=== PATIENT | female | born 1935 | race Asian ===

== ENCOUNTER 2017-01-02 11:12 | Outpatient (CLI) | payer MEDICARE, OTHER | END 2017-01-02 23:45 | DX: D63.1 Anemia in chronic kidney disease (principal); E11.9 Type 2 diabetes mellitus without complications; I10 Essential (primary) hypertension ==

== ENCOUNTER 2017-01-17 10:04 | Outpatient (CLI) | payer MEDICARE, OTHER | END 2017-01-17 10:05 | disposition home or self-care (01) | DX: D63.1 Anemia in chronic kidney disease (principal) ==

== ENCOUNTER 2017-02-18 10:50 | Outpatient (CLI) | payer MEDICARE, OTHER | END 2017-02-18 10:51 | disposition home or self-care (01) | DX: M10.9 Gout, unspecified (principal) ==

== ENCOUNTER 2017-11-18 08:00 | Outpatient (CLI) | payer MEDICARE, OTHER ==
[2017-11-18 13:26] LABS: % IRON SATURATION 25 % (20-50); ALBUMIN 4.2 g/dL (3.2-5.5); ALBUMIN/GLOBULIN RATIO 1.4 (1.0-2.2); ALKALINE PHOSPHATASE 34 IU/L (42-121); ALT ALANINE AMINOTRANSFERASE 19 IU/L (10-60); AST ASPARTATE AMINOTRANSFERASE 28 IU/L (10-42); BILIRUBIN,TOTAL 0.7 mg/dL (0.2-1.0); BUN - BLOOD UREA NITROGEN 26 mg/dL (6-20); CALCIUM 9.1 mg/dL (8.5-10.3); CARBON DIOXIDE - CO2 27 mmol/L (21-32); CHLORIDE 108 mmol/L (101-111); CHOL/HDL RATIO 2.6 (<4.4); CHOLESTEROL 113 mg/dL; CREATININE 1.6 mg/dL (0.4-1.0); GFR - MDRD 31 (>89); GLUCOSE 106 mg/dL (70-100); HDL CHOLESTEROL 43 mg/dL; IRON 80 ug/dL (28-170); LDL CHOLESTEROL,CALCULATED 45 mg/dL; SODIUM 140 mmol/L (135-145); TOTAL IRON BINDING CAPACITY 323 ug/dL (250-450); TOTAL PROTEIN 7.2 g/dL (6.7-8.2); TRANSFERRIN 231 mg/dL (192-382); URIC ACID 4.2 mg/dL (2.6-7.2); VLDL CHOLESTEROL 25 mg/dL
[2017-11-18 13:30] LABS: THYROID STIMULATING HORMONE 1.65 uIU/mL (0.34-5.60)
[2017-11-18 13:35] LABS: FERRITIN 276.8 ng/mL (11.0-306.8)
[2017-11-18 14:19] LABS: HB2 TOTAL 13.1 g/dL; HEMOGLOBIN A1C 0.56 g/dL; HEMOGLOBIN A1C % 6.1 % (4.6-6.2)
== END 2017-11-18 08:01 | disposition home or self-care (01) ==
LOC: LAB.WCP 08:00
PROVIDERS: ATTEND Family Medicine
DX: D63.1 Anemia in chronic kidney disease (principal); E11.22 Type 2 diabetes mellitus with diabetic chronic kidney disease; I12.9 Hypertensive chronic kidney disease with stage 1 through stage 4 chronic kidney disease, or unspecified chronic kidney disease; N18.9 Chronic kidney disease, unspecified
CPT/HCPCS: 36415; 80053; 80061; 82728; 83036; 83540; 83721; 84443; 84466; 84550

== ENCOUNTER 2018-06-05 11:35 | Outpatient (CLI) | payer MEDICARE, OTHER ==
[2018-06-05 19:18] LABS: ALBUMIN/GLOBULIN RATIO 1.4 (1.0-2.2); BILIRUBIN,TOTAL 0.6 mg/dL (0.2-1.0); CALCIUM 9.2 mg/dL (8.5-10.3); CREATININE 1.8 mg/dL (0.4-1.0); TOTAL PROTEIN 6.8 g/dL (6.7-8.2)
[2018-06-05 20:36] LABS: BASOPHILS # (AUTO) 0.1 10^3/uL (0.0-0.1); BASOPHILS % (AUTO) 2.3 %; EOSINOPHILS # (AUTO) 0.3 10^3/uL (0.0-0.7); EOSINOPHILS % (AUTO) 4.1 %; HGB - HEMOGLOBIN 11.1 g/dL (12.0-16.0); LYMPHOCYTES # (AUTO) 1.6 10^3/uL (1.5-3.5); LYMPHOCYTES % (AUTO) 26.9 %; MEAN CORPUSCULAR HEMOGLOBIN 21.5 pg (27.0-31.0); MEAN CORPUSCULAR VOLUME 70.4 fL (81.0-99.0); MEAN PLATELET VOLUME 7.5 fL (7.9-10.8); MONOCYTES # (AUTO) 0.7 10^3/uL (0.0-1.0); MONOCYTES % (AUTO) 11.6 %; NEUTROPHILS # (AUTO) 3.4 10^3/uL (1.5-6.6); NEUTROPHILS % (AUTO) 55.1 %; PLT - PLATELET COUNT 196 10^3/uL (130-450); RED BLOOD COUNT 5.19 10^6/uL (4.20-5.40); RED CELL DISTRIBUTION WIDTH 16.1 % (12.0-15.0); WHITE BLOOD COUNT 6.1 x10^3/uL (4.8-10.8)
[2018-06-05 20:39] LABS: MEAN CORPUSCULAR HGB CONC 30.5 g/dL (32.0-36.0)
[2018-06-05 20:40] LABS: HB2 TOTAL 12.5 g/dL; HEMOGLOBIN A1C 0.55 g/dL; HEMOGLOBIN A1C % 6.2 % (4.6-6.2)
== END 2018-06-05 11:36 ==
LOC: LAB.WCP 11:35
PROVIDERS: ATTEND Family Medicine
DX: I10 Essential (primary) hypertension (principal); E11.9 Type 2 diabetes mellitus without complications
CPT/HCPCS: 36415; 80053; 83036; 85025

== ENCOUNTER 2019-03-21 06:25 | Emergency (ER) | payer MEDICARE, OTHER ==
[2019-03-21 06:39] VITALS: BP 159/69
[2019-03-21 06:59] LABS: BASOPHILS # (AUTO) 0.1 10^3/uL (0.0-0.1); BASOPHILS % (AUTO) 1.2 %; EOSINOPHILS # (AUTO) 0.1 10^3/uL (0.0-0.7); EOSINOPHILS % (AUTO) 1.5 %; HGB - HEMOGLOBIN 12.3 g/dL (12.0-16.0); LYMPHOCYTES # (AUTO) 1.9 10^3/uL (1.5-3.5); LYMPHOCYTES % (AUTO) 28.7 %; MEAN CORPUSCULAR HEMOGLOBIN 21.9 pg (27.0-31.0); MEAN CORPUSCULAR VOLUME 70.5 fL (81.0-99.0); MEAN PLATELET VOLUME 7.5 fL (7.9-10.8); MONOCYTES # (AUTO) 0.5 10^3/uL (0.0-1.0); MONOCYTES % (AUTO) 8.2 %; NEUTROPHILS % (AUTO) 60.4 %; PLT - PLATELET COUNT 251 10^3/uL (130-450); RED BLOOD COUNT 5.63 10^6/uL (4.20-5.40); RED CELL DISTRIBUTION WIDTH 15.1 % (12.0-15.0); WHITE BLOOD COUNT 6.6 x10^3/uL (4.8-10.8)
[2019-03-21 07:11] LABS: ALBUMIN 4.1 g/dL (3.2-5.5); ALBUMIN/GLOBULIN RATIO 1.1 (1.0-2.2); BILIRUBIN,TOTAL 0.9 mg/dL (0.2-1.0); CALCIUM 9.6 mg/dL (8.5-10.3); CREATININE 1.6 mg/dL (0.4-1.0); TOTAL PROTEIN 7.8 g/dL (6.7-8.2)
--- NOTE | 2019-03-21 07:24 | ED Physician Documentation ---
PD HPI ABD PAIN - Stated complaint Stated Complaint: CONSTIPATION - Chief complaint Chief Complaint: Abd Pain - History obtained from History obtained from: Patient - History of Present Illness Timing - onset: How many days ago (5) Timing - duration: Days (5) Timing - details: Gradual onset, Still present Quality: Fullness/distended Location: All over / everywhere Worsened by: Eating Associated symptoms: Nausea, Constipation. No: Vomiting Similar symptoms before: Has not had sx before Recently seen: Clinic - Additional information Additional information: 83-year-old female has been in to see her doctor for some hip pain, was placed on some narcotic, and now has developed constipation with no bowel movement over the past 5 days. She is feeling some fullness overall in her abdomen and some mild nausea. She does not otherwise feel ill. Review of Systems Constitutional: denies: Fever Nose: denies: Rhinorrhea / runny nose, Congestion Throat: denies: Sore throat Cardiac: denies: Chest pain / pressure Respiratory: denies: Dyspnea, Cough GI: reports: Abdominal Pain, Nausea, Constipation. 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 : Renal insuffiency HEENT: None Psych: None Musculoskeletal: None Derm: None - Past Surgical History Past Surgical History: Yes General: Cholecystectomy, Appendectomy - Present Medications Home Medications: Ambulatory Orders Medication Instructions Recorded Confirmed Calcium Crb,Cit/D3/Min34/Susan 1 each PO BID 10/25/14 04/01/17 [Citracal + Bone Density Tablet] Clopidogrel Bisulfate [Plavix] 75 mg PO DAILY 10/25/14 04/01/17 Glipizide [Glipizide ER] 2.5 mg PO DAILY 10/25/14 04/01/17 Simvastatin [Zocor] 20 mg PO DAILY 10/25/14 04/01/17 Telmisartan [Micardis] 40 mg PO DAILY 10/25/14 04/01/17 raNITIdine [Zantac] 150 mg PO BID 10/25/14 04/01/17 Colchicine 0.6 mg PO DAILY 04/01/17 04/01/17 - Allergies Allergies/Adverse Reactions: Allergies Allergy/AdvReac Type Severity Reaction Status Date / Time allopurinol Allergy Itching Verified 06/29/16 09:35 lisinopril Allergy Respiratory Verified 06/29/16 09:35 losartan Allergy Itching Verified 06/29/16 09:35 rocuronium Allergy Respiratory Verified 06/29/16 09:35 - Social History Does the pt smoke?: No Smoking Status: Never smoker Does the pt drink ETOH?: No Does the pt have substance abuse?: No - Immunizations Immunizations are current?: Yes - POLST Patient has POLST: No PD ED PE NORMAL - Vitals Vital signs reviewed: Yes (mild hypertension) - General General: Alert and oriented X 3, No acute distress, Well developed/nourished - HEENT HEENT: Atraumatic, PERRL, EOMI - Cardiac Cardiac: RRR, Other (2/6 holosystolic murmer at LSB) - Respiratory Respiratory: No respiratory distress - Abdomen Abdomen: Soft, Non tender - Back Back: No CVA TTP, No spinal TTP - Derm Derm: Normal color, Warm and dry, No rash - Extremities Extremities: No deformity, No edema, No calf tenderness / cord - Neuro Neuro: Alert and oriented X 3, manager integration 2-12 intact, No motor deficit, No sensory deficit, Normal speech Eye Opening: Spontaneous Motor: Obeys Commands Verbal: Oriented GCS Score: 15 - Psych Psych: Normal mood, Normal affect Results - Vitals Vitals: Vital Signs - 24 hr 03/21/19 06:37 Temperature 36.8 C Heart Rate 97 Respiratory 17 Rate Blood Pressure 159/69 H O2 Saturation 100 Oxygen O2 Source Room air - Labs Labs: Laboratory Tests 03/21/19 03/21/19 06:50 06:50 WBC 6.6 RBC 5.63 H Hgb 12.3 Hct 39.7 MCV 70.5 L MCH 21.9 L MCHC 31.0 L RDW 15.1 H Plt Count 251 MPV 7.5 L Neut # (Auto) 4.0 Lymph # (Auto) 1.9 [place] # (Auto) 0.5 Eos # (Auto) 0.1 Baso # (Auto) 0.1 Absolute Nucleated RBC 0.00 Nucleated RBC % 0.0 Sodium 138 Potassium 3.8 Chloride 102 Carbon Dioxide 23 Anion Gap 13.0 BUN 23 H Creatinine 1.6 H Estimated GFR (MDRD) 31 L Glucose 135 H Calcium 9.6 Total Bilirubin 0.9 AST 28 ALT 16 Alkaline Phosphatase 56 Total Protein 7.8 Albumin 4.1 Globulin 3.7 Albumin/Globulin Ratio 1.1 Lipase 58 H PD MEDICAL DECISION MAKING - ED course Complexity details: reviewed results, re-evaluated patient, considered differential, d/w patient, d/w family ED course: 83-year-old female recently started on some narcotic pain reliever has developed some constipation and she is administered an enema here in the emergency dep artment with good result. Departure - Departure Disposition: 01 Home, Self Care Clinical Impression: Constipation Qualifiers: Constipation type: unspecified constipation type Qualified Code(s): K59.00 - Constipation, unspecified Condition: Stable Instructions: ED Constipation Follow-Up: Tank Velazquez MD [Primary Care Provider] -
== END 2019-03-21 08:30 | disposition home or self-care (01) ==
LOC: ED 06:25
DX: K59.00 Constipation, unspecified (principal); I10 Essential (primary) hypertension; E11.9 Type 2 diabetes mellitus without complications; Z79.84 Long term (current) use of oral hypoglycemic drugs
CPT/HCPCS: 36415; 80053; 83690; 85025; 99282; 99283

== ENCOUNTER 2019-09-24 07:08 | Outpatient (CLI) | payer MEDICARE, OTHER ==
[2019-09-24 13:22] LABS: ALBUMIN 4.4 g/dL (3.2-5.5); ALBUMIN/GLOBULIN RATIO 1.4 (1.0-2.2); ALKALINE PHOSPHATASE 45 IU/L (42-121); ALT ALANINE AMINOTRANSFERASE 16 IU/L (10-60); AST ASPARTATE AMINOTRANSFERASE 26 IU/L (10-42); BILIRUBIN,TOTAL 0.9 mg/dL (0.2-1.0); BUN - BLOOD UREA NITROGEN 27 mg/dL (6-20); CALCIUM 9.2 mg/dL (8.5-10.3); CARBON DIOXIDE - CO2 29 mmol/L (21-32); CHLORIDE 102 mmol/L (101-111); CHOL/HDL RATIO 2.4 (<4.4); CHOLESTEROL 113 mg/dL; CREATININE 1.8 mg/dL (0.4-1.0); GFR - MDRD 27 (>89); GLUCOSE 111 mg/dL (70-100); HDL CHOLESTEROL 48 mg/dL; LDL CHOLESTEROL,CALCULATED 35 mg/dL; LDL/HDL RATIO 0.7 (<4.4); SODIUM 141 mmol/L (135-145); TOTAL PROTEIN 7.5 g/dL (6.7-8.2); URIC ACID 4.6 mg/dL (2.6-7.2); VLDL CHOLESTEROL 30 mg/dL
[2019-09-24 13:36] LABS: BASOPHILS # (AUTO) 0.1 10^3/uL (0.0-0.1); EOSINOPHILS # (AUTO) 0.2 10^3/uL (0.0-0.7); EOSINOPHILS % (AUTO) 3.5 %; HGB - HEMOGLOBIN 11.8 g/dL (12.0-16.0); LYMPHOCYTES # (AUTO) 1.9 10^3/uL (1.5-3.5); LYMPHOCYTES % (AUTO) 30.4 %; MEAN CORPUSCULAR HEMOGLOBIN 21.3 pg (27.0-31.0); MEAN CORPUSCULAR HGB CONC 29.4 g/dL (32.0-36.0); MEAN CORPUSCULAR VOLUME 72.4 fL (81.0-99.0); MEAN PLATELET VOLUME 10.4 fL (7.9-10.8); MONOCYTES # (AUTO) 0.5 10^3/uL (0.0-1.0); MONOCYTES % (AUTO) 8.6 %; NEUTROPHILS # (AUTO) 3.5 10^3/uL (1.5-6.6); NEUTROPHILS % (AUTO) 56.2 %; PLT - PLATELET COUNT 231 10^3/uL (130-450); RED BLOOD COUNT 5.54 10^6/uL (4.20-5.40); WHITE BLOOD COUNT 6.3 x10^3/uL (4.8-10.8)
== END 2019-09-24 23:59 | disposition home or self-care (01) ==
LOC: LAB.WCP 07:08
PROVIDERS: ATTEND Family Medicine
DX: I10 Essential (primary) hypertension (principal); E11.9 Type 2 diabetes mellitus without complications; E79.0 Hyperuricemia without signs of inflammatory arthritis and tophaceous disease
CPT/HCPCS: 36415; 80053; 80061; 83721; 84443; 84550; 85025

== ENCOUNTER 2020-07-24 12:58 | Emergency (ER) | payer MEDICARE, OTHER ==
--- NOTE | 2020-07-24 13:16 | ED Physician Documentation ---
History of Present Illness - Stated complaint Stated Complaint: FISH BONE IN THROAT - Chief complaint Chief Complaint: Heent - History obtained from History obtained from: Patient - History of Present Illness Timing: Today Pain level max: 0 Pain level now: 0 Improved by: nothing Worsened by: nothing - Additonal information Additional information: feels like there is a fish bone in her throat after eating fish and chips today. No vomiting. Able to eat and drink. 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 : Renal insuffiency HEENT: None Psych: None Musculoskeletal: None Derm: None - Past Surgical History Past Surgical History: Yes General: Cholecystectomy, Appendectomy - Present Medications Home Medications: Ambulatory Orders Medication Instructions Recorded Confirmed Calcium Crb,Cit/D3/Min34/Susan 1 each PO BID 10/25/14 04/01/17 [Citracal + Bone Density Tablet] Clopidogrel Bisulfate [Plavix] 75 mg PO DAILY 10/25/14 04/01/17 Glipizide [Glipizide ER] 2.5 mg PO DAILY 10/25/14 04/01/17 Simvastatin [Zocor] 20 mg PO DAILY 10/25/14 04/01/17 Telmisartan [Micardis] 40 mg PO DAILY 10/25/14 04/01/17 raNITIdine [Zantac] 150 mg PO BID 10/25/14 04/01/17 Colchicine 0.6 mg PO DAILY 04/01/17 04/01/17 - Allergies Allergies/Adverse Reactions: Allergies Allergy/AdvReac Type Severity Reaction Status Date / Time allopurinol Allergy Itching Verified 07/24/20 13:01 lisinopril Allergy Respiratory Verified 07/24/20 13:01 losartan Allergy Itching Verified 07/24/20 13:01 rocuronium Allergy Respiratory Verified 07/24/20 13:01 - Social History Does the pt smoke?: No Smoking Status: Never smoker Does the pt drink ETOH?: No Does the pt have substance abuse?: No - Immunizations Immunizations are current?: Yes - POLST Patient has POLST: No PD ED PE NORMAL - Vitals Vital signs reviewed: Yes - General General: Alert and oriented X 3, No acute distress - HEENT HEENT: Moist mucous membranes, Pharynx benign, Other (no visible FB in the oropharynx) - Neck Neck: Supple, no meningeal sign - Cardiac Cardiac: RRR - Respiratory Respiratory: No respiratory distress, Clear bilaterally - Derm Derm: Warm and dry - Neuro Neuro: Alert and oriented X 3 Results - Vitals Vitals: Vital Signs - 24 hr 07/24/20 07/24/20 07/24/20 13:01 13:05 14:04 Temperature 36.5 C 36.5 C 36.5 C Heart Rate 101 H 100 85 Respiratory 16 16 16 Rate Blood Pressure 210/73 H 210/73 H 149/87 H O2 Saturation 99 99 99 Oxygen O2 Source Room air - Rads (name of study) CT soft tissue neck Radiology: Prelim report reviewed, EMP read contemporaneously, See rad report PD MEDICAL DECISION MAKING - ED course Complexity details: reviewed results, re-evaluated patient, considered differential, d/w patient, d/w family ED course: 84-year-old female presents to the emergency department after feeling like there is a fishbone stuck in her throat. Tolerating p.o. without difficulty. No radiopaque foreign body on CT scan. She was informed of the irregular spiculated nodule in the right lung apex. She will follow-up with her doctor for a chest CT. Patient and family counseled regarding signs and symptoms for which I believe and urgent re-evaluation would be necessary. Patient with good understanding of and agreement to plan and is comfortable going home at this time This document was made in part using voice recognition software. While efforts are made to proofread this document, sound alike and grammatical errors may occur. 1. No radiopaque foreign body identified. 2. Irregular spiculated nodule within the right lung apex is new from the prior CT. The findings are suspicious for a neoplasm and further evaluation is recommended with dedicated chest CT. Departure - Departure Disposition: 01 Home, Self Care Clinical Impression: Lung mass Esophageal foreign body Qualifiers: Encounter type: initial encounter Qualified Code(s): T18.108A - Unspecified foreign body in esophagus causing other injury, initial encounter Condition: Good Instructions: ED Foreign Body Esophageal Rslv Follow-Up: Tank Velazquez MD [Primary Care Provider] - Within 3 Days Comments: We do not see any evidence of a fishbone in your neck on CT scan today. It is likely that there is a small abrasion in your throat, causing your symptoms. You do however have a mass in the right upper lung. You need a chest CT performed to further evaluate this. This should be done this week with your doctor. Return if you worsen. Discharge Date/Time: 07/24/20 14:04
--- NOTE | 2020-07-24 13:52 | CT Report ---
PROCEDURE: SOFT TISSUE NECK WO INDICATIONS: fish bone in throat TECHNIQUE: Non-contrast 3.0 mm axial sections acquired from the sella to the aortic arch. Additiona l oblique axial 3.0 mm sections acquired through the pharynx. 3 mm thick coronal reformats were gene rated. For radiation dose reduction, the following was used: automated exposure control, adjustment of mA and/or kV according to patient size. COMPARISON: None. FINDINGS: Image quality: Excellent. Lymph nodes: No enlarged lymph nodes seen throughout the neck. Vessels: Non-opacified vessels appear normal in caliber. Neck spaces: The oropharynx, nasopharynx, and pharynx demonstrate no mucosal lesions. No radiopaque foreign body identified. The vocal cords, false vocal cords, pyriform sinuses, epiglottis, vallecula , and tongue base all appear normal. Extramucosal spaces appear unremarkable. Glands: The parotid and submandibular glands appear normal, without stones. The thyroid demonstrate s no discrete nodules. Miscellaneous: Visualized brain demonstrates left frontal lobe encephalomalacia. There is generalize d cerebral volume loss with prominence of the ventricles and sulci. The orbits appear unremarkable. W ithin the visualized right lung apex, there is a spiculated nodule measuring up to 2.0 cm which appea rs new compared to the prior chest CT. Scarring is also demonstrated within the right apex. Superfici al soft tissues appear normal. IMPRESSION: 1. No radiopaque foreign body identified. 2. Irregular spiculated nodule within the right lung apex is new from the prior CT. The findings are suspicious for a neoplasm and further evaluation is recommended with dedicated chest CT. Reviewed by: Arnol Saenz MD on 07/24/2020 12:50 PM [facility] Approved by: Arnol Saenz MD on 07/24/2020 12:50 PM [facility] Station ID: [id number]
[2020-07-24 14:05] VITALS: BP 149/87
== END 2020-07-24 14:04 | disposition home or self-care (01) ==
LOC: ED 12:58
DX: T18.128A Food in esophagus causing other injury, initial encounter (principal); X58.XXXA Exposure to other specified factors, initial encounter; R91.1 Solitary pulmonary nodule; I10 Essential (primary) hypertension; E11.9 Type 2 diabetes mellitus without complications; Z79.84 Long term (current) use of oral hypoglycemic drugs; Z79.02 Long term (current) use of antithrombotics/antiplatelets
CPT/HCPCS: 70491; 99282; 99284

== ENCOUNTER 2020-09-22 10:02 | Emergency (ER) | payer MEDICARE, OTHER ==
--- NOTE | 2020-09-22 10:54 | XRAY Report ---
PROCEDURE: Chest 1 View X-Ray INDICATIONS: Chest pain TECHNIQUE: One view of the chest was acquired. COMPARISON: FINDINGS: Surgical changes and devices: None. Lungs and pleura: There is blunting of the costophrenic angle on the right consistent with a small pl eural effusion. No focal consolidation, mass, pneumothorax. Mediastinum: Mediastinal contours appear normal. The heart is at the upper limits of normal. The aor ta is tortuous. Bones and chest wall: No suspicious bony lesions. Overlying soft tissues appear unremarkable. IMPRESSION: 1. Blunting of the right costophrenic angle consistent with pleural effusion versus scarring. 2. Heart size is at the upper limits of normal. Reviewed by: Ady Hennessy on 09/22/2020 10:53 AM [facility] Approved by: Ady Hennessy on 09/22/2020 10:53 AM [facility] Station ID: [id number]
[2020-09-22 11:16] LABS: BASOPHILS # (AUTO) 0.1 10^3/uL (0.0-0.1); EOSINOPHILS % (AUTO) 0.5 %; HGB - HEMOGLOBIN 12.1 g/dL (12.0-16.0); LYMPHOCYTES # (AUTO) 1.1 10^3/uL (1.5-3.5); LYMPHOCYTES % (AUTO) 18.4 %; MEAN CORPUSCULAR HEMOGLOBIN 23.4 pg (27.0-31.0); MEAN CORPUSCULAR HGB CONC 31.9 g/dL (32.0-36.0); MEAN CORPUSCULAR VOLUME 73.3 fL (81.0-99.0); MEAN PLATELET VOLUME 9.5 fL (7.9-10.8); MONOCYTES # (AUTO) 0.4 10^3/uL (0.0-1.0); MONOCYTES % (AUTO) 6.5 %; NEUTROPHILS # (AUTO) 4.4 10^3/uL (1.5-6.6); NEUTROPHILS % (AUTO) 73.1 %; PLT - PLATELET COUNT 225 10^3/uL (130-450); RED BLOOD COUNT 5.17 10^6/uL (4.20-5.40); RED CELL DISTRIBUTION WIDTH 18.4 % (12.0-15.0)
[2020-09-22 11:23] LABS: ALBUMIN 4.3 g/dL (3.2-5.5); ALBUMIN/GLOBULIN RATIO 1.4 (1.0-2.2); BILIRUBIN,TOTAL 0.8 mg/dL (0.2-1.0); CALCIUM 9.4 mg/dL (8.5-10.3); CREATININE 1.8 mg/dL (0.4-1.0); TOTAL PROTEIN 7.3 g/dL (6.7-8.2)
[2020-09-22] MEDS ORDERED: SODIUM CHLORIDE 0.9% 1,000 ML IV STA (12:16)
--- NOTE | 2020-09-22 12:16 | ED Physician Documentation ---
History of Present Illness - Stated complaint Stated Complaint: LT SIDE BODY TINGLING - Chief complaint Chief Complaint: General - History obtained from History obtained from: Patient - Additonal information Additional information: 85-year-old female presents to the emergency department for evaluation of left sided body pain. History is somewhat difficult to elicit from her as there is a mild language barrier however she does report that for about 1 month that she has had pain that radiates from her left shoulder down to her hip. She denies that she has any shortness of air new cough weight loss night sweats vomiting urinary symptoms abdominal pain or diarrhea. She was seen in this emergency department in early July when she had concerns that there was a fishbone stuck in her throat. Subsequent CT of the neck did not reveal any foreign body in the throat however there was a spiculated mass in the apex of her right lung. A dedicated CT of the chest was recommended. Patient is scheduled to see Dr. Tripp in [place] on October 17. She is unsure why she is seeing him, but does believe it is related to the mass seen in her her chest a few months ago pt denies that she has her left sided body pain right now, but states that it is usually worse at night when laying flat pt has a hx of htn and dm and CVA. Denies any CAD hx Review of Systems Constitutional: denies: Fever, Chills, Fatigue, Weight Loss Eyes: reports: Reviewed and negative Ears: reports: Reviewed and negative Nose: reports: Reviewed and negative Throat: reports: Reviewed and negative Cardiac: denies: Chest pain / pressure, Palpitations Respiratory: denies: Dyspnea, Cough, Hemoptysis, Wheezing GI: denies: Abdominal Pain, Nausea, Vomiting, Diarrhea : denies: Dysuria, Frequency, Hesitancy Skin: denies: Rash, Lesions Musculoskeletal: reports: Other (left sided pain from left shoulder to hip) Neurologic: reports: Reviewed and negative Psychiatric: reports: Reviewed and negative PD PAST MEDICAL HISTORY - Past Medical History Past Medical History: Yes Cardiovascular: Hypertension, High cholesterol Respiratory: None Neuro: None Endocrine/Autoimmune: Type 2 diabetes GI: GERD 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 : Renal insuffiency HEENT: None Psych: None Musculoskeletal: None Derm: None - Past Surgical History Past Surgical History: Yes General: Cholecystectomy, Appendectomy - Present Medications Home Medications: Ambulatory Orders Medication Instructions Recorded Confirmed Calcium Crb,Cit/D3/Min34/Susan 1 each PO BID 10/25/14 09/22/20 [Citracal + Bone Density Tablet] Clopidogrel Bisulfate [Plavix] 75 mg PO DAILY 10/25/14 09/22/20 Glipizide [Glipizide ER] 2.5 mg PO DAILY 10/25/14 09/22/20 Simvastatin [Zocor] 20 mg PO DAILY 10/25/14 09/22/20 amLODIPine [Norvasc] 5 mg DAILY 09/22/20 09/22/20 - Allergies Allergies/Adverse Reactions: Allergies Allergy/AdvReac Type Severity Reaction Status Date / Time allopurinol Allergy Itching Verified 09/22/20 10:33 lisinopril Allergy Respiratory Verified 09/22/20 10:33 losartan Allergy Itching Verified 09/22/20 10:33 rocuronium Allergy Respiratory Verified 09/22/20 10:33 - Social History Does the pt smoke?: No Smoking Status: Never smoker Does the pt drink ETOH?: No Does the pt have substance abuse?: No - Immunizations Immunizations are current?: Yes - POLST Patient has POLST: No PD ED PE EXPANDED - General General: Alert, No acute distress, Well developed/nourished - HEENT HEENT: Atraumatic, PERRL, EOMI, Moist mucous membranes, Pharynx normal - Neck Neck: Supple w/out meningeal sx, No tenderness. No: Thyroid enlarged / mass, Limited ROM - Cardiac Cardiac: Regular Rate, Regular Rhythm, Murmur Present, Radial strong equal, Pedal strong equal, Cap refill < 2 sec - Respiratory Respiratory: Clear to ausultation louie. No: Distress, Labored, Wheezing - Abdomen Abdomen: Normal Bowel sounds. No: Tender to palpation, Rebound, Guarding - Derm Derm: Normal color, Warm and dry. No: Rash - Extremities Extremities: Normal. No: Deformity, Tenderness, Pedal edema bilateral, Right calf TTP/cord, Left calf TTP/cord - Neuro Neuro: Alert and Oriented X 3, CNII-XII intact, Normal gait, Normal speech - GCS Eye Opening: Spontaneous Motor: Obeys Commands Verbal: Oriented Total: 15 Results - Vitals Vitals: Vital Signs - 24 hr 09/22/20 09/22/20 09/22/20 10:29 11:00 12:01 Temperature 36.1 C L Heart Rate 100 89 89 Respiratory 16 16 16 Rate Blood Pressure 178/71 H 196/92 H 170/85 H O2 Saturation 100 100 100 Oxygen O2 Source Room air - EKG (time done) 1043 Rate: Rate (enter#) (93) Rhythm: NSR Intervals: Normal [place] QRS: Normal Ischemia: ST depression (minimal lateral leads) - Labs Labs: Laboratory Tests 09/22/20 09/22/20 09/22/20 10:52 10:52 10:52 WBC 6.0 RBC 5.17 Hgb 12.1 Hct 37.9 MCV 73.3 L MCH 23.4 L MCHC 31.9 L RDW 18.4 H Plt Count 225 MPV 9.5 Neut # (Auto) 4.4 Lymph # (Auto) 1.1 L [place] # (Auto) 0.4 Eos # (Auto) 0.0 Baso # (Auto) 0.1 Absolute Nucleated RBC 0.00 Nucleated RBC % 0.0 Sodium 139 Potassium 3.7 Chloride 103 Carbon Dioxide 23 Anion Gap 13.0 BUN 28 H Creatinine 1.8 H Estimated GFR (MDRD) 27 L Glucose 169 H Calcium 9.4 Total Bilirubin 0.8 AST 29 ALT 21 Alkaline Phosphatase 51 Troponin I High Sens 17.5 H* Total Protein 7.3 Albumin 4.3 Globulin 3.0 Albumin/Globulin Ratio 1.4 Lipase 75 H 09/22/20 12:59 WBC RBC Hgb Hct MCV MCH MCHC RDW Plt Count MPV Neut # (Auto) Lymph # (Auto) [place] # (Auto) Eos # (Auto) Baso # (Auto) Absolute Nucleated RBC Nucleated RBC % Sodium Potassium Chloride Carbon Dioxide Anion Gap BUN Creatinine Estimated GFR (MDRD) Glucose Calcium Total Bilirubin AST ALT Alkaline Phosphatase Troponin I High Sens 19.3 H* Total Protein Albumin Globulin Albumin/Globulin Ratio Lipase - Rads (name of study) cxr Radiology: Final report received (Blunting of the right costophrenic angle consistent with pleural effusion versus scarring. Heart size is at the upper limits of normal.) CT chest Radiology: Final report received (There are 2 separate lesions in the right lung which both may represent separate primary foci of bronchogenic carcinoma both measuring approximately 1.3 x 1.6 cm. Coronary artery disease. Mild emphysema.) PD MEDICAL DECISION MAKING - ED course Complexity details: reviewed results, re-evaluated patient, considered differential, d/w patient, d/w family ED course: 85-year-old female presents to the emergency department for evaluation of left- sided body pain. She reports that the pain is worse at night and that it comes and goes without any exacerbating known factors. History is somewhat difficult to obtain as she is has a history of dementia and there is a mild language barrier. I did call her to discuss some of the history however ED he was unclear what was causing her left-sided belly pain. She was seen in this emergency department about 2 months ago with concerns of a fishbone stuck in her throat. A CT of the neck did show a likely pulmonary mass in her chest. I did do a CT of the chest today and it does indicate that she has 2 separate areas of foci that likely represent a bronchogenic carcinoma. Here in the emergency department she is noted to have some baseline renal insufficiency which is unchanged from baseline. Her initial high-sensitivity troponin is 17.5 just above our cutoff threshold. A delta was also mildly elevated at 19. However patient denies that she has chest pain at this time. Her EKG is nonischemic. She does have a heart score of 5 but in the absence of active chest pain we will defer her for inpatient echo and stress testing. (this case was discussed with Dr. Wilver Gardner) I did discuss this ED visit with her primary care provider Dr. Tripp. He reports that his office will call to arrange follow-up for her next week. I advised that she should likely have an echo and stress test completed as an outpatient. He is in agreement with this. I also discussed the case with her and he understands the plan of care as well. While here in the emergency department patient has been alert well-appearing and hemodynamically stable Departure - Departure Disposition: 01 Home, Self Care Clinical Impression: Pulmonary mass, Elevated troponin Condition: Stable Record reviewed to determine appropriate education?: Yes Follow-Up: Damien Tripp MD [Physician No Access] - Comments: The CT of her Chest unfortunately shows that she does have 2 areas of concern in her lung that likely are cancer. This was discussed with Dr. Tripp. His office should be calling to arrange for follow-up within the next week. In addition to evaluation of the suspected pulmonary cancer she should be referred for outpatient stress test and echocardiogram. If at any point she has fainting episodes cannot breathe well, develops chest pain please return immediately to the ER
[2020-09-22 14:05] VITALS: BP 139/57
--- NOTE | 2020-09-22 14:10 | CT Report ---
PROCEDURE: CHEST WO INDICATIONS: recently diagnosed mass on soft tissue neck TECHNIQUE: Noncontrast 5 mm thick sections acquired from the pulmonary apices to the posterior costophrenic angl es. 7 mm thick coronal and sagittal MIP reformats were then acquired. For radiation dose reduction, the following was used: automated exposure control, adjustment of mA and/or kV according to patient size. COMPARISON: CT soft tissue neck without contrast dated 07/24/2020 FINDINGS: Image quality: Excellent. Lungs and pleura: There is a right apical spiculated density which on image #59/4 measures 1.3 x 1.6 cm, and may potent ially represent a bronchogenic carcinoma. There is a ill-defined masslike density with associated atelectasis in the right lower lobe which may also potentially represent bronchogenic carcinoma with associated atelectasis. This is not definite. The masslike area measures approximately 1.3 x 1.6 cm on image 128/4. Reference also, image 52/11 (s agittal reformats). Mild emphysematous change. No acute air space opacities. No pleural effusions or pneumothorax. Central and peripheral airways are patent and normal in caliber. Mediastinum: Heart size is normal. Minimal pericardial effusion. Coronary artery calcifications. No mediastinal adenopathy by size criteria. Thoracic aorta and central pulmonary arteries are normal i n size. Esophagus is normal in caliber. No hiatal hernia. Bones and chest wall: No suspicious bony lesions. No acute vertebral body compression fractures. M ultiple old mild thoracic compressions result in increased thoracic kyphosis. No axillary or supracla vicular adenopathy by size criteria. The thyroid is normal in size. Abdomen: Remote cholecystectomy. IMPRESSION: 1. There are 2 separate lesions in the right lung which both may represent separate primary foci of b ronchogenic carcinoma, both measuring approximately 1.3 x 1.6 cm. 2. Coronary artery disease. 3. Mild emphysema. Comment: Recommend PET/CT for further evaluation. Reviewed by: Ghassan Duarte MD on 09/22/2020 2:08 PM PST Approved by: Ghassan Duarte MD on 09/22/2020 2:08 PM PST Station ID: [id number]
== END 2020-09-22 14:46 | disposition home or self-care (01) ==
LOC: ED 10:02
DX: R91.8 Other nonspecific abnormal finding of lung field (principal); R77.8 Other specified abnormalities of plasma proteins; I10 Essential (primary) hypertension; E11.29 Type 2 diabetes mellitus with other diabetic kidney complication; F03.90 Unspecified dementia, unspecified severity, without behavioral disturbance, psychotic disturbance, mood disturbance, and anxiety; Z79.84 Long term (current) use of oral hypoglycemic drugs
CPT/HCPCS: 36415; 71250; 80053; 83690; 84484; 85025; 93005; 99284; 99285

== ENCOUNTER 2020-09-26 07:00 | Outpatient (CLI) | payer MEDICARE, OTHER ==
[2020-09-26 19:28] LABS: CALCIUM 9.3 mg/dL (8.5-10.3); CREATININE 1.8 mg/dL (0.4-1.0)
[2020-09-26 19:38] LABS: HEMOGLOBIN A1c% 6.4 % (4.27-6.07)
[2020-09-26 20:06] LABS: MICROALBUM/CREATININE RATIO,UR 2933.3 ug/mg (<30.0); MICROALBUMIN,URINE 184.8 mg/dL (0-300.0)
== END 2020-09-26 23:59 | disposition home or self-care (01) ==
LOC: LAB.WCP 07:00
PROVIDERS: ATTEND Internal Medicine
DX: E11.9 Type 2 diabetes mellitus without complications (principal)
CPT/HCPCS: 36415; 80048; 82043; 82570; 83036

== ENCOUNTER 2020-12-27 08:17 | Outpatient (CLI) | payer MEDICARE, OTHER ==
--- NOTE | 2020-12-27 17:58 | CT Report ---
PROCEDURE: CHEST WO INDICATIONS: PULMONARY MASS TECHNIQUE: Noncontrast 5 mm thick sections acquired from the pulmonary apices to the posterior costophrenic angl es. 8 mm thick coronal and sagittal MIP reformats were then acquired. For radiation dose reduction, the following was used: automated exposure control, adjustment of mA and/or kV according to patient size. COMPARISON: 09/22/2020 FINDINGS: Image quality: Excellent. Lungs and pleura: Stable appearance of spiculated, irregular right apical nodule measuring approxima tely 1.3 x 1.6 cm (image 47, series 4). There is minimal adjacent groundglass opacities. Punctate glen tral calcification is again noted. Redemonstration of irregular, ill-defined consolidation with assoc iated atelectasis, bronchiectasis, and peripheral groundglass opacities in the right lower lobe, abut ting the peripheral margins of the right major fissure. This is stable in appearance. Measured at a s imilar level, this area measures approximately 1.4 cm x 1.5 cm versus 1.3 cm x 1.6 centimeters previo usly. This is measured on image 127, series 4 and today's study. A more dense, nodular focus inferior ly measures approximately 1.4 cm x 1.0 cm (image 140, series 4) versus approximately 1.4 cm x 0.9 cm previously (image 140, series 4). No new acute air space opacities. Minimal pulmonary emphysematous changes. Stable mild subpleural scarring versus early fibrosis of the bilateral lung bases. Calcified left basilar pulmonary nodule. No pleural effusions or pneumothorax. Central and peripheral airways are patent and normal in caliber. Mediastinum: Heart size is normal. Moderate scattered atherosclerotic calcifications of the coronary arteries. No pericardial effusion. No mediastinal adenopathy by size criteria. Thoracic aorta and central pulmonary arteries are normal in size. Esophagus is normal in caliber. No hiatal hernia. Bones and chest wall: No suspicious bony lesions. No vertebral body compression fractures. No axil sage or supraclavicular adenopathy by size criteria. The thyroid is normal in size. Abdomen: Status post cholecystectomy. Extensive atherosclerotic calcifications of the upper abdomina l aorta. No evidence for aneurysmal dilatation. Stable partially exophytic right renal hypodensity. V isualized upper abdominal solid organs and bowel loops appear normal in the absence of contrast. IMPRESSION: 1. Stable appearance of spiculated, irregular right apical nodule measuring 1.3 x 1.6 cm as well as s table irregular right lower lobe pulmonary nodule measuring 1.4 x 1.5 cm. These are again suspicious for possible primary neoplasms of the lung. Recommend short interval follow-up chest CT in 3-[address] 2. Stable appearance of mild pulmonary emphysematous change. 3. Atherosclerosis. 4. Status post cholecystectomy. Reviewed by: Jacky Aguilar MD on 12/27/2020 5:56 PM PDT Approved by: Jacky Aguilar MD on 12/27/2020 5:56 PM PDT Station ID: [id number]
== END 2020-12-27 08:18 | disposition home or self-care (01) ==
LOC: DI 08:17
PROVIDERS: ATTEND Family Medicine
DX: J98.4 Other disorders of lung (principal); R91.8 Other nonspecific abnormal finding of lung field

== ENCOUNTER 2021-01-12 08:37 | Outpatient (CLI) | payer MEDICARE, OTHER ==
--- NOTE | 2021-01-12 10:35 | CARDIAC PROCEDURE NOTE ---
DATE OF SERVICE: 01/12/2021 Physician: Jazmin Bhardwaj MD, [facility] INDICATION: Chest pain, preop evaluation for possible lung cancer. CARDIAC RISK FACTORS: Advanced age, Hypertension, Diabetes. DESCRIPTION OF PROCEDURE: After signing informed consent, the patient underwent a Sunil-protocol treadmill stress test. Echo imaging was done pre-exercise and post-exercise. RESTING HEART RATE: 77. PEAK HEART RATE: 114 (85% predicted maximum heart rate for age). RESTING BLOOD PRESSURE: 181/61 (the patient did not take her morning Amlodipine dose). PEAK BLOOD PRESSURE: 148/68 (drop in blood pressure may be due to arm position on the treadmill or from "underfilled ventricle" which was seen on Echo). The patient exercised for 2 minutes and 25 seconds in stage I of a Sunil- protocol treadmill stress test. She had no chest pain or shortness of breath, but developed "fatigue" and wanted to stop exercise. The patient could not hear or understand directions to rate her exertion on a Adolfo scale. Oxygen saturation was 99% at rest and dropped to 82% at peak exercise on room air. RESTING EKG: Normal sinus rhythm, left atrial enlargement, LVH with strain pattern, early repolarization. EKG AT PEAK: No new ST segment or T-wave changes develop, rare PVCs are seen. SUMMARY: 1. Abnormal resting EKG. 2. No ischemic changes developed by EKG criteria, but may be inaccurate due to abnormal resting EKG. 3. Oxygen desaturation develops at peak exercise along with complaint of fatigue. 4. Echo images reported separately and showed: LVH present at rest, underfilled hyperdynamic ventricle at rest (suggests volume depletion). There is normal augmentation of all LV segments with exercise and even "kissing fontenot" develop with exercise, LVEF of almost 100%. This would produce a drop in blood pressure. IMPRESSION: 1. Oxygen desaturation developed with exercise. This may be pulmonary or cardiac in etiology. 2. Left ventricular hypertrophy, underfilled ventricle seen, hypotension develops with exercise. 3. Normal stress test regarding evaluation for coronary artery disease. 4. This patient's overall cardiac risk is Moderate. RECOMMENDATIONS: 1. Adjust medications for better blood pressure control and address volume depletion. 2. Evaluation for home oxygen is advised. cc: Damien Tripp MD TD: 01/12/2021 10:33 MILES
== END 2021-01-12 08:38 | disposition home or self-care (01) ==
LOC: DI 08:37
PROVIDERS: ATTEND Internal Medicine
DX: R07.89 Other chest pain (principal); R94.31 Abnormal electrocardiogram [ECG] [EKG]
CPT/HCPCS: 93350

== ENCOUNTER 2021-03-01 | Outpatient (CLI) | payer MEDICARE, OTHER | END 2021-03-01 18:05 | disposition EMS.NT ==

== ENCOUNTER 2021-03-28 08:00 | Outpatient (CLI) | payer MEDICARE, OTHER ==
[2021-03-28 12:28] LABS: ABSOLUTE RETICS # AUTO 0.067 10^6/uL (0.020-0.110); BASOPHILS # (AUTO) 0.1 10^3/uL (0.0-0.1); BASOPHILS % (AUTO) 0.8 %; EOSINOPHILS # (AUTO) 0.2 10^3/uL (0.0-0.7); EOSINOPHILS % (AUTO) 3.4 %; HCT - HEMATOCRIT 35.9 % (37.0-47.0); HGB - HEMOGLOBIN 10.9 g/dL (12.0-16.0); LYMPHOCYTES # (AUTO) 1.7 10^3/uL (1.5-3.5); LYMPHOCYTES % (AUTO) 24.5 %; MEAN CORPUSCULAR HEMOGLOBIN 22.1 pg (27.0-31.0); MEAN CORPUSCULAR HGB CONC 30.4 g/dL (32.0-36.0); MEAN CORPUSCULAR VOLUME 72.8 fL (81.0-99.0); MONOCYTES # (AUTO) 0.5 10^3/uL (0.0-1.0); MONOCYTES % (AUTO) 6.8 %; NEUTROPHILS # (AUTO) 4.5 10^3/uL (1.5-6.6); NEUTROPHILS % (AUTO) 64.2 %; PLT - PLATELET COUNT 246 10^3/uL (130-450); RED BLOOD COUNT 4.93 10^6/uL (4.20-5.40); RETICULOCYTE COUNT % (AUTO) 1.35 % (0.5-2.3); WHITE BLOOD COUNT 7.1 x10^3/uL (4.8-10.8)
[2021-03-28 12:52] LABS: ALBUMIN 4.4 g/dL (3.2-5.5); ALBUMIN/GLOBULIN RATIO 1.5 (1.0-2.2); BILIRUBIN,TOTAL 0.8 mg/dL (0.2-1.0); CALCIUM 9.6 mg/dL (8.5-10.3); CREATININE 2.5 mg/dL (0.4-1.0); ESTIMATED AVERAGE GLUCOSE 140 mg/dL (70-100); HEMOGLOBIN A1c% 6.5 % (4.27-6.07); POTASSIUM 4.3 mmol/L (3.5-5.0); TOTAL PROTEIN 7.3 g/dL (6.7-8.2)
== END 2021-03-28 23:59 | disposition home or self-care (01) ==
LOC: LAB.WCP 08:00
PROVIDERS: ATTEND Internal Medicine
DX: E11.22 Type 2 diabetes mellitus with diabetic chronic kidney disease (principal); N18.4 Chronic kidney disease, stage 4 (severe); D63.1 Anemia in chronic kidney disease; E79.0 Hyperuricemia without signs of inflammatory arthritis and tophaceous disease
CPT/HCPCS: 36415; 80053; 82728; 83036; 83540; 84466; 84550; 85025; 85045

== ENCOUNTER 2021-06-26 07:12 | Outpatient (CLI) | payer MEDICARE, OTHER ==
[2021-06-26 11:59] LABS: CALCIUM 9.1 mg/dL (8.5-10.3); CREATININE 2.2 mg/dL (0.4-1.0); POTASSIUM 4.2 mmol/L (3.5-5.0)
[2021-06-26 12:07] LABS: ESTIMATED AVERAGE GLUCOSE 140 mg/dL (70-100); HEMOGLOBIN A1c% 6.5 % (4.27-6.07)
[2021-06-26 12:26] LABS: BASOPHILS # (AUTO) 0.1 10^3/uL (0.0-0.1); BASOPHILS % (AUTO) 1.3 %; EOSINOPHILS # (AUTO) 0.2 10^3/uL (0.0-0.7); EOSINOPHILS % (AUTO) 3.8 %; HCT - HEMATOCRIT 36.7 % (37.0-47.0); HGB - HEMOGLOBIN 10.4 g/dL (12.0-16.0); LYMPHOCYTES # (AUTO) 1.7 10^3/uL (1.5-3.5); LYMPHOCYTES % (AUTO) 28.4 %; MEAN CORPUSCULAR HEMOGLOBIN 20.7 pg (27.0-31.0); MEAN CORPUSCULAR HGB CONC 28.3 g/dL (32.0-36.0); MEAN CORPUSCULAR VOLUME 73.1 fL (81.0-99.0); MEAN PLATELET VOLUME 10.4 fL (7.9-10.8); MONOCYTES # (AUTO) 0.6 10^3/uL (0.0-1.0); MONOCYTES % (AUTO) 9.2 %; NEUTROPHILS # (AUTO) 3.5 10^3/uL (1.5-6.6); PLT - PLATELET COUNT 250 10^3/uL (130-450); RED BLOOD COUNT 5.02 10^6/uL (4.20-5.40); RED CELL DISTRIBUTION WIDTH 17.2 % (12.0-15.0); WHITE BLOOD COUNT 6.1 x10^3/uL (4.8-10.8)
== END 2021-06-26 23:59 | disposition home or self-care (01) ==
LOC: LAB.WCP 07:12
PROVIDERS: ATTEND Internal Medicine
DX: E11.22 Type 2 diabetes mellitus with diabetic chronic kidney disease (principal); N18.4 Chronic kidney disease, stage 4 (severe)
CPT/HCPCS: 36415; 80048; 83036; 85025

== ENCOUNTER 2021-11-22 10:20 | Outpatient (CLI) | payer MEDICARE, OTHER ==
[2021-11-22 12:42] LABS: BASOPHILS # (AUTO) 0.1 10^3/uL (0.0-0.1); BASOPHILS % (AUTO) 1.1 %; EOSINOPHILS # (AUTO) 0.2 10^3/uL (0.0-0.7); EOSINOPHILS % (AUTO) 2.7 %; HCT - HEMATOCRIT 33.8 % (37.0-47.0); HGB - HEMOGLOBIN 10.1 g/dL (12.0-16.0); LYMPHOCYTES # (AUTO) 1.9 10^3/uL (1.5-3.5); LYMPHOCYTES % (AUTO) 29.8 %; MEAN CORPUSCULAR HGB CONC 29.9 g/dL (32.0-36.0); MEAN CORPUSCULAR VOLUME 70.3 fL (81.0-99.0); MEAN PLATELET VOLUME 10.3 fL (7.9-10.8); MONOCYTES # (AUTO) 0.6 10^3/uL (0.0-1.0); MONOCYTES % (AUTO) 10.3 %; NEUTROPHILS # (AUTO) 3.5 10^3/uL (1.5-6.6); NEUTROPHILS % (AUTO) 55.8 %; PLT - PLATELET COUNT 213 10^3/uL (130-450); RED BLOOD COUNT 4.81 10^6/uL (4.20-5.40); RED CELL DISTRIBUTION WIDTH 16.1 % (12.0-15.0); WHITE BLOOD COUNT 6.2 x10^3/uL (4.8-10.8)
[2021-11-22 12:43] LABS: ALBUMIN 3.9 g/dL (3.2-5.5); ALBUMIN/GLOBULIN RATIO 1.3 (1.0-2.2); ALKALINE PHOSPHATASE 40 IU/L (42-121); ALT ALANINE AMINOTRANSFERASE 12 IU/L (10-60); AST ASPARTATE AMINOTRANSFERASE 22 IU/L (10-42); BILIRUBIN,TOTAL 0.4 mg/dL (0.2-1.0); BUN - BLOOD UREA NITROGEN 29 mg/dL (6-20); CALCIUM 8.9 mg/dL (8.5-10.3); CARBON DIOXIDE - CO2 24 mmol/L (21-32); CHLORIDE 107 mmol/L (101-111); CHOL/HDL RATIO 2.6 (<4.4); CHOLESTEROL 134 mg/dL; CREATININE 2.7 mg/dL (0.4-1.0); GFR - MDRD 17 (>89); GLUCOSE 142 mg/dL (70-100); HDL CHOLESTEROL 52 mg/dL; LDL CHOLESTEROL,CALCULATED 51 mg/dL; SODIUM 140 mmol/L (135-145); TOTAL PROTEIN 6.8 g/dL (6.7-8.2); TRIGLYCERIDES 155 mg/dL; VLDL CHOLESTEROL 31 mg/dL
[2021-11-22 12:52] LABS: CREATININE,URINE 63.7 mg/dL; MICROALBUM/CREATININE RATIO,UR 2863.4 ug/mg (<30.0); MICROALBUMIN,URINE 182.4 mg/dL (0-300.0)
[2021-11-22 13:12] LABS: ESTIMATED AVERAGE GLUCOSE 143 mg/dL (70-100); HEMOGLOBIN A1c% 6.6 % (4.27-6.07)
== END 2021-11-22 10:21 | disposition home or self-care (01) ==
LOC: LAB.N 10:20
PROVIDERS: ATTEND Internal Medicine
DX: E11.29 Type 2 diabetes mellitus with other diabetic kidney complication (principal); E79.0 Hyperuricemia without signs of inflammatory arthritis and tophaceous disease; I10 Essential (primary) hypertension
CPT/HCPCS: 36415; 80053; 80061; 82043; 82570; 83036; 83721; 84550; 85025

== ENCOUNTER 2021-12-25 12:39 | Outpatient (CLI) | payer MEDICARE, OTHER ==
[2021-12-25 13:08] LABS: BASOPHILS # (AUTO) 0.1 10^3/uL (0.0-0.1); BASOPHILS % (AUTO) 0.7 %; EOSINOPHILS # (AUTO) 0.1 10^3/uL (0.0-0.7); EOSINOPHILS % (AUTO) 1.6 %; HCT - HEMATOCRIT 30.7 % (37.0-47.0); HGB - HEMOGLOBIN 9.2 g/dL (12.0-16.0); LYMPHOCYTES # (AUTO) 1.5 10^3/uL (1.5-3.5); LYMPHOCYTES % (AUTO) 21.7 %; MEAN CORPUSCULAR HEMOGLOBIN 20.8 pg (27.0-31.0); MEAN CORPUSCULAR VOLUME 69.3 fL (81.0-99.0); MEAN PLATELET VOLUME 9.2 fL (7.9-10.8); MONOCYTES # (AUTO) 0.6 10^3/uL (0.0-1.0); MONOCYTES % (AUTO) 8.4 %; NEUTROPHILS # (AUTO) 4.5 10^3/uL (1.5-6.6); NEUTROPHILS % (AUTO) 67.3 %; PLT - PLATELET COUNT 203 10^3/uL (130-450); RED BLOOD COUNT 4.43 10^6/uL (4.20-5.40); RED CELL DISTRIBUTION WIDTH 15.3 % (12.0-15.0); WHITE BLOOD COUNT 6.7 x10^3/uL (4.8-10.8)
[2021-12-25 13:12] LABS: SLIDE REVIEW? Indicated
[2021-12-25 14:46] LABS: PLATELET ESTIMATE, MANUAL NORMAL (130-450,000) (NORMAL); PLATELET MORPHOLOGY NORMAL APPEARANCE (NORMAL); WBC MORPHOLOGY (MULTIPLE) NORMAL APPEARANCE (NORMAL)
[2021-12-25 15:22] LABS: % IRON SATURATION 22 % (20-50); IRON 65 ug/dL (28-170); TOTAL IRON BINDING CAPACITY 298 ug/dL (250-450); TRANSFERRIN 213 mg/dL (192-382)
== END 2021-12-25 12:40 | disposition home or self-care (01) ==
LOC: LAB 12:39
PROVIDERS: ATTEND Nurse Practitioner Family
DX: N18.9 Chronic kidney disease, unspecified (principal); D63.1 Anemia in chronic kidney disease
CPT/HCPCS: 36415; 82728; 83540; 84466; 85025

== ENCOUNTER 2022-05-04 07:55 | Outpatient (CLI) | payer MEDICARE, OTHER ==
[2022-05-04 12:36] LABS: % IRON SATURATION 28 % (20-50); ALBUMIN 3.8 g/dL (3.2-5.5); ALBUMIN/GLOBULIN RATIO 1.3 (1.0-2.2); ALKALINE PHOSPHATASE 39 IU/L (42-121); ALT ALANINE AMINOTRANSFERASE 13 IU/L (10-60); AST ASPARTATE AMINOTRANSFERASE 21 IU/L (10-42); BILIRUBIN,TOTAL 0.6 mg/dL (0.2-1.0); BUN - BLOOD UREA NITROGEN 47 mg/dL (6-20); CARBON DIOXIDE - CO2 25 mmol/L (21-32); CHLORIDE 108 mmol/L (101-111); CHOL/HDL RATIO 2.5 (<4.4); CHOLESTEROL 117 mg/dL; CREATININE 3.4 mg/dL (0.4-1.0); GFR - MDRD 13 (>89); GLUCOSE 130 mg/dL (70-100); HDL CHOLESTEROL 46 mg/dL; IRON 83 ug/dL (28-170); LDL CHOLESTEROL,CALCULATED 39 mg/dL; LDL/HDL RATIO 0.8 (<4.4); POTASSIUM 4.5 mmol/L (3.5-5.0); SODIUM 140 mmol/L (135-145); TOTAL IRON BINDING CAPACITY 295 ug/dL (250-450); TOTAL PROTEIN 6.7 g/dL (6.7-8.2); TRANSFERRIN 211 mg/dL (192-382); TRIGLYCERIDES 158 mg/dL; URIC ACID 8.6 mg/dL (2.6-7.2); VLDL CHOLESTEROL 32 mg/dL
[2022-05-04 12:39] LABS: ESTIMATED AVERAGE GLUCOSE 140 mg/dL (70-100); HEMOGLOBIN A1c% 6.5 % (4.27-6.07)
[2022-05-04 13:01] LABS: BASOPHILS # (AUTO) 0.1 10^3/uL (0.0-0.1); BASOPHILS % (AUTO) 1.3 %; EOSINOPHILS # (AUTO) 0.3 10^3/uL (0.0-0.7); EOSINOPHILS % (AUTO) 6.1 %; HCT - HEMATOCRIT 31.8 % (37.0-47.0); HGB - HEMOGLOBIN 9.4 g/dL (12.0-16.0); LYMPHOCYTES # (AUTO) 1.2 10^3/uL (1.5-3.5); LYMPHOCYTES % (AUTO) 22.6 %; MEAN CORPUSCULAR HEMOGLOBIN 21.1 pg (27.0-31.0); MEAN CORPUSCULAR HGB CONC 29.6 g/dL (32.0-36.0); MEAN CORPUSCULAR VOLUME 71.5 fL (81.0-99.0); MEAN PLATELET VOLUME 10.2 fL (7.9-10.8); MONOCYTES # (AUTO) 0.5 10^3/uL (0.0-1.0); MONOCYTES % (AUTO) 10.1 %; NEUTROPHILS # (AUTO) 3.1 10^3/uL (1.5-6.6); NEUTROPHILS % (AUTO) 59.5 %; PLT - PLATELET COUNT 239 10^3/uL (130-450); RED BLOOD COUNT 4.45 10^6/uL (4.20-5.40); WHITE BLOOD COUNT 5.3 x10^3/uL (4.8-10.8)
== END 2022-05-04 07:56 | disposition home or self-care (01) ==
LOC: LAB.N 07:55
PROVIDERS: ATTEND Internal Medicine
DX: E11.22 Type 2 diabetes mellitus with diabetic chronic kidney disease (principal); N18.4 Chronic kidney disease, stage 4 (severe); D63.1 Anemia in chronic kidney disease; E79.0 Hyperuricemia without signs of inflammatory arthritis and tophaceous disease
CPT/HCPCS: 36415; 80053; 80061; 82668; 82728; 83036; 83540; 83721; 84466; 84550; 85025

== ENCOUNTER 2022-06-26 08:00 | Outpatient (CLI) | payer MEDICARE, OTHER ==
[2022-06-26 13:00] LABS: BASOPHILS # (AUTO) 0.1 10^3/uL (0.0-0.1); EOSINOPHILS # (AUTO) 0.2 10^3/uL (0.0-0.7); EOSINOPHILS % (AUTO) 3.9 %; HCT - HEMATOCRIT 28.5 % (37.0-47.0); HGB - HEMOGLOBIN 9.8 g/dL (12.0-16.0); LYMPHOCYTES # (AUTO) 1.1 10^3/uL (1.5-3.5); LYMPHOCYTES % (AUTO) 22.9 %; MEAN CORPUSCULAR HEMOGLOBIN 26.6 pg (27.0-31.0); MEAN CORPUSCULAR HGB CONC 34.4 g/dL (32.0-36.0); MEAN CORPUSCULAR VOLUME 77.2 fL (81.0-99.0); MEAN PLATELET VOLUME 9.8 fL (7.9-10.8); MONOCYTES # (AUTO) 0.5 10^3/uL (0.0-1.0); MONOCYTES % (AUTO) 9.7 %; NEUTROPHILS % (AUTO) 62.1 %; PLT - PLATELET COUNT 242 10^3/uL (130-450); RED BLOOD COUNT 3.69 10^6/uL (4.20-5.40); RED CELL DISTRIBUTION WIDTH 21.1 % (12.0-15.0); SLIDE REVIEW? Indicated; WHITE BLOOD COUNT 4.8 x10^3/uL (4.8-10.8)
[2022-06-26 13:11] LABS: % IRON SATURATION 32 % (20-50); ALBUMIN/GLOBULIN RATIO 1.4 (1.0-2.2); ALKALINE PHOSPHATASE 44 IU/L (42-121); ALT ALANINE AMINOTRANSFERASE 15 IU/L (10-60); AST ASPARTATE AMINOTRANSFERASE 23 IU/L (10-42); BILIRUBIN,TOTAL 0.5 mg/dL (0.2-1.0); BUN - BLOOD UREA NITROGEN 51 mg/dL (6-20); CALCIUM 9.2 mg/dL (8.5-10.3); CARBON DIOXIDE - CO2 26 mmol/L (21-32); CHLORIDE 106 mmol/L (101-111); CHOL/HDL RATIO 2.4 (<4.4); CHOLESTEROL 115 mg/dL; CREATININE 3.4 mg/dL (0.4-1.0); GFR - MDRD 13 (>89); GLUCOSE 142 mg/dL (70-100); HDL CHOLESTEROL 47 mg/dL; IRON 95 ug/dL (28-170); LDL CHOLESTEROL,CALCULATED 40 mg/dL; LDL/HDL RATIO 0.9 (<4.4); POTASSIUM 4.6 mmol/L (3.5-5.0); SODIUM 141 mmol/L (135-145); TOTAL IRON BINDING CAPACITY 294 ug/dL (250-450); TOTAL PROTEIN 6.9 g/dL (6.7-8.2); TRANSFERRIN 210 mg/dL (192-382); TRIGLYCERIDES 138 mg/dL; URIC ACID 7.6 mg/dL (2.6-7.2); VLDL CHOLESTEROL 28 mg/dL
[2022-06-26 13:54] LABS: PLATELET ESTIMATE, MANUAL NORMAL (130-450,000) (NORMAL); PLATELET MORPHOLOGY NORMAL APPEARANCE (NORMAL); WBC MORPHOLOGY (MULTIPLE) NORMAL APPEARANCE (NORMAL)
[2022-06-26 14:05] LABS: ESTIMATED AVERAGE GLUCOSE 137 mg/dL (70-100); HEMOGLOBIN A1c% 6.4 % (4.27-6.07)
== END 2022-06-26 23:59 | disposition home or self-care (01) ==
LOC: LAB.N 08:00
PROVIDERS: ATTEND Internal Medicine
DX: E11.22 Type 2 diabetes mellitus with diabetic chronic kidney disease (principal); N18.4 Chronic kidney disease, stage 4 (severe); D63.1 Anemia in chronic kidney disease; E79.0 Hyperuricemia without signs of inflammatory arthritis and tophaceous disease
CPT/HCPCS: 36415; 80053; 80061; 82668; 82728; 83036; 83540; 83721; 84466; 84550; 85025

== ENCOUNTER 2022-10-06 06:22 | Emergency (ER) | payer MEDICARE, OTHER ==
[2022-10-06 06:42] VITALS: BP 158/56
== END 2022-10-06 11:52 | disposition left against medical advice (07) ==
LOC: ED 06:22
DX: Z53.21 Procedure and treatment not carried out due to patient leaving prior to being seen by health care provider (principal)

== ENCOUNTER 2022-11-12 07:45 | Outpatient (CLI) | payer MEDICARE, OTHER ==
[2022-11-12 12:51] LABS: BASOPHILS % (AUTO) 0.7 %; EOSINOPHILS # (AUTO) 0.1 10^3/uL (0.0-0.7); EOSINOPHILS % (AUTO) 1.8 %; HCT - HEMATOCRIT 29.2 % (37.0-47.0); HGB - HEMOGLOBIN 9.6 g/dL (12.0-16.0); LYMPHOCYTES # (AUTO) 1.1 10^3/uL (1.5-3.5); LYMPHOCYTES % (AUTO) 25.9 %; MEAN CORPUSCULAR HEMOGLOBIN 25.6 pg (27.0-31.0); MEAN CORPUSCULAR HGB CONC 32.9 g/dL (32.0-36.0); MEAN CORPUSCULAR VOLUME 77.9 fL (81.0-99.0); MEAN PLATELET VOLUME 11.1 fL (7.9-10.8); MONOCYTES # (AUTO) 0.4 10^3/uL (0.0-1.0); MONOCYTES % (AUTO) 8.4 %; NEUTROPHILS # (AUTO) 2.8 10^3/uL (1.5-6.6); NEUTROPHILS % (AUTO) 62.7 %; PLT - PLATELET COUNT 256 10^3/uL (130-450); RED BLOOD COUNT 3.75 10^6/uL (4.20-5.40); RED CELL DISTRIBUTION WIDTH 19.7 % (12.0-15.0); WHITE BLOOD COUNT 4.4 x10^3/uL (4.8-10.8)
[2022-11-12 13:29] LABS: CREATININE 3.8 mg/dL (0.4-1.0); PHOSPHORUS 4.5 mg/dL (2.5-4.6); POTASSIUM 4.6 mmol/L (3.5-5.0)
[2022-11-12 14:19] LABS: ESTIMATED AVERAGE GLUCOSE 131 mg/dL (70-100); HEMOGLOBIN A1c% 6.2 % (4.27-6.07)
== END 2022-11-12 07:46 | disposition home or self-care (01) ==
LOC: LAB.N 07:45
PROVIDERS: ATTEND Internal Medicine
DX: E11.22 Type 2 diabetes mellitus with diabetic chronic kidney disease (principal); N18.4 Chronic kidney disease, stage 4 (severe)
CPT/HCPCS: 36415; 80048; 82668; 83036; 83970; 84100; 85025

== ENCOUNTER 2023-03-25 07:33 | Outpatient (CLI) | payer MEDICARE, OTHER ==
[2023-03-25 13:12] LABS: CALCIUM 8.8 mg/dL (8.5-10.3); CREATININE 3.8 mg/dL (0.4-1.0); PHOSPHORUS 4.6 mg/dL (2.5-4.6); POTASSIUM 4.8 mmol/L (3.5-5.0)
[2023-03-25 13:29] LABS: BASOPHILS % (AUTO) 0.5 %; EOSINOPHILS # (AUTO) 0.2 10^3/uL (0.0-0.7); EOSINOPHILS % (AUTO) 2.1 %; HCT - HEMATOCRIT 30.9 % (37.0-47.0); LYMPHOCYTES # (AUTO) 1.4 10^3/uL (1.5-3.5); LYMPHOCYTES % (AUTO) 18.5 %; MEAN CORPUSCULAR HEMOGLOBIN 20.5 pg (27.0-31.0); MEAN CORPUSCULAR HGB CONC 29.1 g/dL (32.0-36.0); MEAN CORPUSCULAR VOLUME 70.5 fL (81.0-99.0); MEAN PLATELET VOLUME 10.3 fL (7.9-10.8); MONOCYTES # (AUTO) 0.5 10^3/uL (0.0-1.0); NEUTROPHILS # (AUTO) 5.5 10^3/uL (1.5-6.6); NEUTROPHILS % (AUTO) 71.4 %; PLT - PLATELET COUNT 256 10^3/uL (130-450); RED BLOOD COUNT 4.38 10^6/uL (4.20-5.40); RED CELL DISTRIBUTION WIDTH 15.6 % (12.0-15.0); WHITE BLOOD COUNT 7.8 x10^3/uL (4.8-10.8)
[2023-03-25 13:41] LABS: ESTIMATED AVERAGE GLUCOSE 131 mg/dL (70-100); HEMOGLOBIN A1c% 6.2 % (4.27-6.07)
[2023-03-26 05:12] LABS: VITAMIN D 25-HYDROXY 31.7 ng/mL (30.0-100.0)
== END 2023-03-25 07:34 | disposition home or self-care (01) ==
LOC: LAB.N 07:33
PROVIDERS: ATTEND Internal Medicine
DX: E11.22 Type 2 diabetes mellitus with diabetic chronic kidney disease (principal); N18.5 Chronic kidney disease, stage 5; D63.8 Anemia in other chronic diseases classified elsewhere
CPT/HCPCS: 36415; 80048; 82306; 82668; 83036; 84100; 85025

== ENCOUNTER 2023-05-28 12:09 | Outpatient (CLI) | payer MEDICARE, OTHER | END 2023-05-28 12:10 | disposition critical access hospital (66) | LOC: EMS 12:09 | DX: R55 Syncope and collapse (principal); R53.1 Weakness | CPT/HCPCS: A0425; A0429 ==

== ENCOUNTER 2023-05-28 12:36 | Emergency (ER) | payer MEDICARE, OTHER ==
--- NOTE | 2023-05-28 12:42 | ED Physician Documentation ---
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 : Renal insuffiency HEENT: None Psych: None Musculoskeletal: None Derm: None - Past Surgical History Past Surgical History: Yes General: Cholecystectomy, Appendectomy - Present Medications Home Medications: Ambulatory Orders Medication Instructions Recorded Confirmed Calcium Crb,Cit/D3/Min34/Susan 1 each PO BID 10/25/14 01/11/22 [Citracal + Bone Density Tablet] Clopidogrel Bisulfate [Plavix] 75 mg PO DAILY 10/25/14 01/11/22 Simvastatin [Zocor] 20 mg PO DAILY 10/25/14 01/11/22 glipiZIDE [Glipizide ER] 2.5 mg PO DAILY 10/25/14 01/11/22 amLODIPine [Norvasc] 5 mg PO DAILY 09/22/20 01/11/22 Multivitamin 1 each PO DAILY 01/11/22 01/11/22 - Allergies Allergies/Adverse Reactions: Allergies Allergy/AdvReac Type Severity Reaction Status Date / Time allopurinol Allergy Itching Verified 10/06/22 06:42 lisinopril Allergy Respiratory Verified 10/06/22 06:42 losartan Allergy Itching Verified 10/06/22 06:42 rocuronium Allergy Respiratory Verified 10/06/22 06:42 - Social History Does the pt smoke?: No Smoking Status: Never smoker Does the pt drink ETOH?: No Does the pt have substance abuse?: No - Immunizations Immunizations are current?: Yes - POLST Patient has POLST: No Results - Vitals Vitals: Oxygen O2 Source Room air
[2023-05-28] MEDS ORDERED: SODIUM CHLORIDE 0.9% 1,000 ML IV STA (12:45)
--- NOTE | 2023-05-28 12:48 | ED Physician Documentation ---
History of Present Illness - Stated complaint Stated Complaint: GENERAL WEAKNESS - Additonal information Additional information: 87-year-old female presents to the emergency department for evaluation of generalized weakness and near syncope. She had reported to her primary care d lorna that she has been feeling generally weak for about the last week. She is advised to go to a local urgent care. While there, when ambulating to one of the back rooms she had a near syncopal event. She did not fall and there was no loss of consciousness or head strike. EMS was summoned. They found her to have normal sugars, heart rate of 80, sinus rhythm and a blood pressure of 160-170 systolic. She presents to the emergency department very pleasant, hard of hearing but otherwise well-appearing. Patient denies headache, chest pain, abdominal pain, nausea, vomiting. No melena or hematochezia. She does report feeling somewhat short of air over the last week. Review of Systems Constitutional: denies: Fever, Chills Eyes: denies: Loss of vision Cardiac: denies: Chest pain / pressure, Palpitations, Pedal edema, Calf pain, Reviewed and negative Respiratory: reports: Dyspnea. 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 : Renal insuffiency HEENT: None Psych: None Musculoskeletal: None Derm: None - Past Surgical History Past Surgical History: Yes General: Cholecystectomy, Appendectomy - Present Medications Home Medications: Ambulatory Orders Medication Instructions Recorded Confirmed Calcium Crb,Cit/D3/Min34/Susan 1 each PO BID 10/25/14 01/11/22 [Citracal + Bone Density Tablet] Clopidogrel Bisulfate [Plavix] 75 mg PO DAILY 10/25/14 01/11/22 Simvastatin [Zocor] 20 mg PO DAILY 10/25/14 01/11/22 glipiZIDE [Glipizide ER] 2.5 mg PO DAILY 10/25/14 01/11/22 amLODIPine [Norvasc] 5 mg PO DAILY 09/22/20 01/11/22 Multivitamin 1 each PO DAILY 01/11/22 01/11/22 - Allergies Allergies/Adverse Reactions: Allergies Allergy/AdvReac Type Severity Reaction Status Date / Time allopurinol Allergy Itching Verified 10/06/22 06:42 lisinopril Allergy Respiratory Verified 10/06/22 06:42 losartan Allergy Itching Verified 10/06/22 06:42 rocuronium Allergy Respiratory Verified 10/06/22 06:42 - Social History Does the pt smoke?: No Smoking Status: Never smoker Does the pt drink ETOH?: No Does the pt have substance abuse?: No - Immunizations Immunizations are current?: Yes - POLST Patient has POLST: No PD ED PE NORMAL - General General: Alert and oriented X 3, No acute distress - HEENT HEENT: PERRL, Moist mucous membranes - Neck Neck: Supple, no meningeal sign, No adenopathy - Cardiac Cardiac: RRR, No murmur - Respiratory Respiratory: No respiratory distress, Clear bilaterally - Abdomen Abdomen: Normal bowel sounds, Soft - Rectal Rectal: Other (MONI Perez chaperoned exam. Brown stool in rectal vault. No melena or hematochezia) - Back Back: No CVA TTP - Derm Derm: Warm and dry Results - Vitals Vitals: Vital Signs - 24 hr 05/28/23 05/28/23 12:48 13:11 Temperature 37.2 C Heart Rate 82 Heart Rate [ 82 Sitting] Heart Rate [ 88 Standing] Heart Rate [ 78 Supine] Respiratory 18 Rate Blood Pressure 166/71 H Blood Pressure 195/73 H [Sitting] Blood Pressure 154/68 H [Standing] Blood Pressure 177/61 H [Supine] O2 Saturation 96 Oxygen O2 Source Room air - EKG (time done) 1257 EKG releavant findings:: EKG personally interpreted by author of this note. Relevant findings are: Rate: Rate (enter#) (78) Rhythm: NSR [place]: Normal Intervals: No: Prolonged QT QRS: Normal Ischemia: Non specific changes Compare to prior EKG: Unchanged from prior EKG Computer interpretation: Agree with computer - Labs Labs: Microbiology 05/28/23 12:45 Occult Blood - Final Stool Laboratory Tests 05/28/23 05/28/23 05/28/23 12:55 12:55 12:55 WBC 9.2 RBC 4.25 Hgb 8.8 L Hct 29.4 L MCV 69.2 L MCH 20.7 L MCHC 29.9 L RDW 15.6 H Plt Count 241 MPV 9.2 Neut # (Auto) 7.7 H Lymph # (Auto) 0.8 L Tyrrell # (Auto) 0.6 Eos # (Auto) 0.1 Baso # (Auto) 0.1 Absolute Nucleated RBC 0.00 Nucleated RBC % 0.0 Sodium 136 Potassium 4.8 H Chloride 107 Carbon Dioxide 21 Anion Gap 8.0 BUN 49 H Creatinine 4.1 H Estimated GFR (MDRD) 10 L Glucose 146 H Calcium 9.2 Total Bilirubin 0.3 AST 16 ALT 8 L Alkaline Phosphatase 65 B-Natriuretic Peptide 321 H Total Protein 7.0 Albumin 3.9 Globulin 3.1 Albumin/Globulin Ratio 1.3 Lipase 110 H PD Medical Decision Making - ED course Complexity details: reviewed results, re-evaluated patient, d/w patient ED course: 87-year-old female presents emergency department for evaluation of 1 week general fatigue, weakness and near syncope today. She states that for the last week she has felt fatigued. Denies any chest pain but endorses some mild shortness of air. No melena or hematochezia. Denies abdominal pain nausea or vomiting. Here in the emergency department her EKG is interpreted by myself is nonischemic. I did obtain CBC and electrolytes. Per my interpretation she has a moderate and progressive anemia. Today's hemoglobin is 8.8. This is a steady decline from 9.6 in late October. Her electrolytes reveal potassium of 4.8. She has known and essentially unchanged chronic kidney disease with a BUN of 49 and creatinine of 4.1 in comparison to 50 and 3.8 about 2 months ago. Patient's BNP today is mildly elevated at 321 previously normal in 2013 at 71. Vital signs are not orthostatic. I did see this patient in September 2021 when she did been here for chest pain. At that time a CT of the chest showed a spiculated irregular right apical nodule that was concerning for malignancy. I had requested the patient follow closely with her PCP Dr. Tripp. It appears that she did have a repeat CT scan completed in December 2020 that again demonstrated a stable appearance of this spiculated nodule which were suspicious for primary neoplasms. It does not appear the patient had repeat CT imaging of her chest in our system since. But I did question the patient and her regarding this they deny having been seen by hematology/oncology. Her did report that at some point she was receiving iron transfusions. Subsequently I spoke on the phone with Dr. Velazquez, physician on-call for Dr. Tripp who is out of office today. He was able to review the clinic notes from follow-up of the September 2020 visit. Patient and her at that time had declined any further work-up or referral for possible lung malignancy. Subsequently every spoken to the patient and her . They do not remember a specific conversation with the PCP regarding cancer, though the does admit that it likely happened. I suspect that the patient may have metastasis of her previously noted right apical lung cancer as causation of her progressive anemia and now near syncope. At this time [facility] does not have CT scanner with contrast available today and as such I have deferred further imaging such as brain chest abdomen and pelvis. The admits they likely would not treat any cancer metastasis. The patient would likely benefit from referral to palliative care given that she has had untreated cancer now for nearly 3 years. Patient and her will follow-up with Dr. Tripp in the next week or so. The usual emergent return precautions for worsening symptoms was discussed. Departure - Departure Clinical Impression: Near syncope Anemia Qualifiers: Anemia type: unspecified type Qualified Code(s): D64.9 - Anemia, unspecified Lung cancer Qualifiers: Laterality: right Lung location: unspecified part of lung Qualified Code(s): C34.91 - Malignant neoplasm of unspecified part of right bronchus or lung Condition: Stable Follow-Up: Damien Tripp MD [Primary Care Provider] - Comments: You are seen today for a near fainting episode as well as feeling fairly weak and fatigued over the last week or so. You do have anemia, which is a low red blood cell or hemoglobin count. Over the last 8 to 9 months you have had a progressive decline in your hemoglobin. This may be related to low iron levels but it may also be Related to untreated lung cancer. When you were seen in the emergency department in September 2020 you were found to have a nodule in your right upper lung that was suggestive of cancer. A repeat CT scan in December 2020 also suggested lung cancer. At that time you did speak with Dr. Tripp and indicated to him in his office that you did not want follow-up or treatment of the cancer. Please call Dr. Tripp's office to request follow-up of this ED visit. They are aware that you are going to call and they will try to fit you in in the next week or so. You can call them at [phone]. Return immediately to the ER if you develop any new or worsening symptoms.
[2023-05-28 13:01] LABS: BASOPHILS # (AUTO) 0.1 10^3/uL (0.0-0.1); BASOPHILS % (AUTO) 0.8 %; EOSINOPHILS # (AUTO) 0.1 10^3/uL (0.0-0.7); EOSINOPHILS % (AUTO) 0.7 %; HCT - HEMATOCRIT 29.4 % (37.0-47.0); HGB - HEMOGLOBIN 8.8 g/dL (12.0-16.0); LYMPHOCYTES # (AUTO) 0.8 10^3/uL (1.5-3.5); LYMPHOCYTES % (AUTO) 8.3 %; MEAN CORPUSCULAR HEMOGLOBIN 20.7 pg (27.0-31.0); MEAN CORPUSCULAR HGB CONC 29.9 g/dL (32.0-36.0); MEAN CORPUSCULAR VOLUME 69.2 fL (81.0-99.0); MEAN PLATELET VOLUME 9.2 fL (7.9-10.8); MONOCYTES # (AUTO) 0.6 10^3/uL (0.0-1.0); MONOCYTES % (AUTO) 6.1 %; NEUTROPHILS # (AUTO) 7.7 10^3/uL (1.5-6.6); NEUTROPHILS % (AUTO) 83.6 %; PLT - PLATELET COUNT 241 10^3/uL (130-450); RED BLOOD COUNT 4.25 10^6/uL (4.20-5.40); RED CELL DISTRIBUTION WIDTH 15.6 % (12.0-15.0); WHITE BLOOD COUNT 9.2 x10^3/uL (4.8-10.8)
[2023-05-28 13:21] LABS: ALBUMIN 3.9 g/dL (3.2-5.5); ALBUMIN/GLOBULIN RATIO 1.3 (1.0-2.2); BILIRUBIN,TOTAL 0.3 mg/dL (0.2-1.0); CALCIUM 9.2 mg/dL (8.5-10.3); CREATININE 4.1 mg/dL (0.6-1.3); POTASSIUM 4.8 mmol/L (3.5-4.5)
--- NOTE | 2023-05-28 14:19 | XRAY Report ---
PROCEDURE: Chest 1 View X-Ray INDICATIONS: Chest Pain TECHNIQUE: One view of the chest was acquired. COMPARISON: Chest radiographs 09/22/2020. CT chest 12/27/2020. FINDINGS: Surgical changes and devices: Right upper quadrant cholecystectomy clips. Lungs and pleura: Lungs are mildly hyperexpanded. Blunting of the left costophrenic angle is again s een likely representing mild scarring rather than pleural effusion as on prior exams. There is inters titial opacities are seen in the right lung that appear increased when compared to prior exams. No pn eumothorax. Mediastinum: Mediastinal contours appear normal. Heart size is mildly enlarged. Bones and chest wall: No suspicious bony lesions. Overlying soft tissues appear unremarkable. Sev ere degenerative changes in the left glenohumeral joint. IMPRESSION: 1.Mildly increased interstitial opacities in the right lung are suspicious for mild edema versus an a typical or viral pneumonia. 2.Bilateral emphysematous changes. 3.Mild cardiomegaly. Reviewed by: Juan R Cheema MD on 05/28/2023 2:18 PM PDT Approved by: Juan R Cheema MD on 05/28/2023 2:18 PM PDT Station ID: [id number]
[2023-05-28 14:47] VITALS: BP 140/66; O2SAT 99
== END 2023-05-28 14:47 | disposition home or self-care (01) ==
LOC: EDUNIT# → ED 12:36
DX: R55 Syncope and collapse (principal); D64.9 Anemia, unspecified; C34.91 Malignant neoplasm of unspecified part of right bronchus or lung; I10 Essential (primary) hypertension; E78.00 Pure hypercholesterolemia, unspecified; E11.9 Type 2 diabetes mellitus without complications; Z79.02 Long term (current) use of antithrombotics/antiplatelets; Z79.84 Long term (current) use of oral hypoglycemic drugs; Z79.899 Other long term (current) drug therapy
CPT/HCPCS: 36415; 80053; 82272; 83690; 83880; 85025; 93005; 96360; 99284

== ENCOUNTER 2023-05-31 06:05 | Outpatient (CLI) | payer MEDICARE, OTHER | END 2023-05-31 23:59 | disposition EMS.NT | LOC: EMS 06:05 | DX: R04.2 Hemoptysis (principal) ==

== ENCOUNTER 2023-06-06 20:26 | Outpatient (CLI) | payer MEDICARE, OTHER | END 2023-06-06 23:59 | disposition EMS.NT | LOC: EMS 20:26 | DX: R04.2 Hemoptysis (principal) ==